=== PATIENT | male | born 1985 | race Caucasian/White ===

== ENCOUNTER 2017-09-18 19:05 | Emergency (ER) | payer SELFPAY | END 2017-09-18 19:50 | disposition left against medical advice (07) | LOC: E/R 19:50 | DX: Z53.21 Procedure and treatment not carried out due to patient leaving prior to being seen by health care provider (principal) ==

== ENCOUNTER 2018-11-21 13:08 | Emergency (ER) | payer SELFPAY | END 2018-11-21 17:12 | disposition left against medical advice (07) | LOC: E/R 17:12 | DX: Z53.21 Procedure and treatment not carried out due to patient leaving prior to being seen by health care provider (principal) | CPT/HCPCS: 99281 ==